=== PATIENT | female | born 1950 | race Caucasian/White ===

== ENCOUNTER 2016-06-28 15:46 | Emergency (ER) | payer OTHER ==
[~2016-06-28 15:46] MED LIST: ALLEGRA ALLERG180 MG PO; DALIRESP500 MCG PO; FISH OIL 1,0001 EAC1 PO; HYDROCHLOROTHIA25 MG PO; IPRAT-ALBUT 0.5-3 ML INH; LEVOTHYROXINE112 MCG PO; NASOGEL NASAL S30 ML; NORVASC 5 MG TAB5 MG PO; NOVOLIN 70100 UNIT/1 SQ; PANTOPRAZOLE SO40 MG PO; PROTONIX40 MG PO; PROVENTIL HFA 61 INH INH; SYNTHROID112 MCG PO; TUDORZA PRESS400 MCG INH
== END 2016-06-28 16:46 | disposition left against medical advice (07) ==
LOC: ER1 15:46
DX: Z53.21 Procedure and treatment not carried out due to patient leaving prior to being seen by health care provider (principal)

== ENCOUNTER → 2016-07-13 | Outpatient (CLI) | payer MEDICARE, OTHER ==
[2016-07-13 10:03] LABS: HEMOGLOBIN 14.7 gm/dl (12.3-15.3); RED BLOOD COUNT 4.9 M/UL (4.00-5.10); WHITE BLOOD COUNT 8.5 K/UL (4.5-11.0)
[2016-07-13 10:28] LABS: BUN/CREATININE RATIO 18 (0-10)
== END ==
LOC: LAB 09:03
PROVIDERS: Family Medicine
DX: J18.9 Pneumonia, unspecified organism (principal); E11.9 Type 2 diabetes mellitus without complications; I10 Essential (primary) hypertension; E03.9 Hypothyroidism, unspecified; R91.8 Other nonspecific abnormal finding of lung field
CPT/HCPCS: 36415; 71020; 80053; 80061; 82043; 82570; 83036; 84439; 84443; 85025

== ENCOUNTER → 2016-08-25 | Outpatient (CLI) | payer MEDICARE, OTHER | LOC: RAD 11:24 | DX: J18.9 Pneumonia, unspecified organism (principal) | CPT/HCPCS: 71020 ==

== ENCOUNTER → 2020-06-21 | Outpatient (CLI) | payer MEDICARE, OTHER ==
[~2020-06-21] MED LIST changes: +CIPRO500 MG PO; +FLAGYL500 MG PO; +NORCO 7.5-3251 EACH PO; +OMNICEF 300 MG300 MG PO; +ONDANSETRON ODT4 MG PO; +PREDNISONE20 MG PO; +PROTONIX 40 MG40 M1 PO
== END ==
LOC: KOH-I 10:45
DX: J44.9 Chronic obstructive pulmonary disease, unspecified (principal); R91.1 Solitary pulmonary nodule
CPT/HCPCS: 71046

== ENCOUNTER 2020-06-23 12:24 | Emergency (ER) | payer MEDICARE, OTHER ==
[~2020-06-23 12:24] MED LIST changes: -OMNICEF 300 MG300 MG PO; -PREDNISONE20 MG PO
[2020-06-23 13:28] LABS: RED BLOOD COUNT 5.07 M/UL (4.00-5.10); WHITE BLOOD COUNT 16.4 K/UL (4.5-11.0)
[2020-06-23 13:47] LABS: BUN/CREATININE RATIO 31 (0-10)
[2020-06-23] MEDS ORDERED: OMNICEF 300 MG300 MG PO (16:25)
[2020-06-23] MEDS ORDERED: PREDNISONE20 MG PO (16:25)
== END 2020-06-23 16:50 | disposition home or self-care (01) ==
LOC: ER1 12:24
PROVIDERS: Family Medicine
DX: J44.9 Chronic obstructive pulmonary disease, unspecified (principal); K21.9 Gastro-esophageal reflux disease without esophagitis; I10 Essential (primary) hypertension; E03.9 Hypothyroidism, unspecified
CPT/HCPCS: 71045; 80053; 82550; 82553; 83880; 84484; 85025; 93005; 94640; 94664; 94760; 96374; 99285; J2930

== ENCOUNTER → 2020-07-15 | Outpatient (CLI) | payer MEDICARE, OTHER ==
[~2020-07-15] MED LIST changes: +OMNICEF 300 MG300 MG PO; +PREDNISONE20 MG PO
== END ==
LOC: KOH-I 11:59
DX: J06.9 Acute upper respiratory infection, unspecified (principal); R05 Cough; R91.1 Solitary pulmonary nodule
CPT/HCPCS: 71046

== ENCOUNTER → 2020-07-30 | Outpatient (CLI) | payer MEDICARE, OTHER | LOC: EXRD 08:00 | DX: Z00.00 Encounter for general adult medical examination without abnormal findings (principal); M81.0 Age-related osteoporosis without current pathological fracture; Z72.0 Tobacco use | CPT/HCPCS: 76706; 77080 ==

== ENCOUNTER 2021-08-03 18:37 | Emergency (ER) | payer MEDICARE, OTHER ==
[2021-08-03 21:15] LABS: HEMOGLOBIN 14.8 gm/dl (12.3-15.3); RED BLOOD COUNT 4.75 M/UL (4.00-5.10)
[2021-08-03 21:35] LABS: BUN/CREATININE RATIO 23 (0-10)
[2021-08-04] MEDS ORDERED: MEDROL DOSEPAK 24 MG PO (00:37)
[2021-08-04] MEDS ORDERED: DOXYCYCLINE HY100 M3 PO (00:37)
== END 2021-08-04 00:50 | disposition home or self-care (01) ==
LOC: ER1 18:37
PROVIDERS: Physician Assistant Medical
DX: J44.1 Chronic obstructive pulmonary disease with (acute) exacerbation (principal); I10 Essential (primary) hypertension; F17.210 Nicotine dependence, cigarettes, uncomplicated; Z72.89 Other problems related to lifestyle; Z88.0 Allergy status to penicillin; Z20.822 Contact with and (suspected) exposure to COVID-19
CPT/HCPCS: 0240U; 36600; 71045; 80053; 80307; 81001; 82550; 82553; 82803; 83880; 84484; 85025; 87040; 93005; 94664; 96374; 99285; G0480; J2930